=== PATIENT | male | born 2000 | race Two or more races ===

== ENCOUNTER 2020-03-11 16:03 | Emergency (ER) | payer MEDICAID ==
[~2020-03-11] VITALS: Ht 172.7 cm; Wt 75.9 kg
[2020-03-11 16:18] VITALS: BP 115/61
--- NOTE | 2020-03-11 16:22 | NUR ---
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 pt has 3 sutures to upper lip. well approximated. no oozing or bleeding noted. no s/sx of infection pt has been seen by PA in triage. sutures removed. pt can be D/C
== END 2020-03-11 17:13 | disposition home or self-care (01) ==
LOC: ED 16:10
DX: S01.511D Laceration without foreign body of lip, subsequent encounter (principal); X58.XXXD Exposure to other specified factors, subsequent encounter
CPT/HCPCS: 99281